=== PATIENT | male | born 1995 | race African-American/Black ===

== ENCOUNTER 2016-12-02 16:22 | Emergency (ER) | payer OTHER ==
[2016-12-02 16:37] VITALS: BP 127/65; PULSE 72; TEMP 98; BMI 32.3
[2016-12-02] MEDS ORDERED: IBUPROFEN 600 MG TABLET (FP) PO ONE ×2 (16:37→17:09)
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
== END 2016-12-02 17:49 | disposition home or self-care (01) ==
LOC: JERFT 16:22
DX: T14.8 Other injury of unspecified body region (principal); V43.52XA Car driver injured in collision with other type car in traffic accident, initial encounter; Y93.89 Activity, other specified; Y92.410 Unspecified street and highway as the place of occurrence of the external cause
CPT/HCPCS: 99281-25

== ENCOUNTER 2017-01-29 14:14 | Emergency (ER) | payer OTHER ==
[2017-01-29 14:22] VITALS: BP 117/61; PULSE 62; TEMP 97.5; BMI 32.3
[2017-01-29] MEDS ORDERED: IBUPROFEN 600 MG TABLET (FP) PO ONE ×2 (14:54→14:56)
--- NOTE | 2017-01-29 15:09 | PDOC ---
History of Present Illness - General Chief Complaint: Pain Stated Complaint: LEFT LEG PAIN Time Seen by Provider: 01/29/17 14:41 - History of Present Illness Initial Comments: 01/29/17 14:57 21 year old male with left knee pain denies injury at this time . reports hyperextension injury in the past. patient reports pain to left knee. pain relief with bracing. no swelling, no numbness or tingling to extremity Past History - Past Medical History Allergies/Adverse Reactions: Allergies Allergy/AdvReac Type Severity Reaction Status Date / Time No Known Allergies Allergy Verified 01/29/17 14:19 Home Medications: Ambulatory Orders NK [No Known Home Medication] 02/24/17 Cardiac Disorders: Yes (murmer) - Immunization History Immunization Up to Date: Yes - Psycho/Social/Smoking Cessation Hx Anxiety: No Suicidal Ideation: No Smoking Status: No Smoking History: Never smoked Have you smoked in the past 12 months: No Number of Cigarettes Smoked Daily: 0 Information on smoking cessation initiated: No Hx Alcohol Use: No Drug/Substance Use Hx: No Substance Use Type: None Review of Systems - Review of Systems Able to Perform ROS?: Yes Is the patient limited Bulgarian proficient: No Musculoskeletal: Yes: Other (left leg / knee pain) *Physical Exam - Vital Signs Last Vital Signs Temp Pulse Resp BP Pulse Ox 97.5 F L 62 18 117/61 100 01/29/17 14:20 01/29/17 14:20 01/29/17 14:20 01/29/17 14:20 01/29/17 14:20 - Physical Exam General Appearance: Yes: Appropriately Dressed Extremity: positive: Other (left knee minimal rom) Integumentary: positive: Normal Color, Dry, Warm Neurologic: positive: Fully Oriented, Alert Progress Note - Progress Note Progress Note: A: left knee pain P: splinting pain control RICE ortho follow up *DC/Admit/Observation/Transfer Diagnosis at time of Disposition: Left knee pain Qualifiers: Chronicity: acute Qualified Code(s): M25.562 - Pain in left knee - Discharge Dispostion Disposition: HOME Condition at time of disposition: Improved - Referrals Referrals: Viridiana Wolfe [Primary Care Provider] - David Myers MD [Staff Physician] - - Patient Instructions Printed Discharge Instructions: Knee Sprain Additional Instructions: ice/ heat to the knee continue using knee brace take ibuprofen 600mg every 6 hours
== END 2017-01-29 15:22 | disposition home or self-care (01) ==
LOC: JERFT 14:14
PROC: 2W3RX1Z Immobilization of Left Lower Leg using Splint (ICD-10-PCS; principal; 2017-01-29)
DX: M25.562 Pain in left knee (principal); R01.1 Cardiac murmur, unspecified
CPT/HCPCS: 29515; 99281-25

== ENCOUNTER 2017-02-24 19:03 | Emergency (ER) | payer OTHER ==
[2017-02-24 19:06] VITALS: BP 132/68; PULSE 87; TEMP 98.7; BMI 32.3
[2017-02-24] MEDS ORDERED: IBUPROFEN 600 MG TABLET (FP) PO ONE ×2 (20:20→20:42)
--- NOTE | 2017-02-24 20:25 | PDOC ---
History of Present Illness - General Chief Complaint: Injury Stated Complaint: INJURY Time Seen by Provider: 02/24/17 20:17 History Source: Patient Exam Limitations: No Limitations - History of Present Illness Initial Comments: 02/24/17 20:20 21 yr male with injury to right thumb playing basketball. Pt has no deformity or swelling. pt is right hand dominant. Occurred: reports: this afternoon Severity: reports: mild Pain Location: reports: upper extremity (right thumb ) Past History - Past Medical History Allergies/Adverse Reactions: Allergies Allergy/AdvReac Type Severity Reaction Status Date / Time No Known Allergies Allergy Verified 02/24/17 19:06 Home Medications: Ambulatory Orders NK [No Known Home Medication] 02/24/17 Cardiac Disorders: Yes (murmer) - Immunization History Immunization Up to Date: Yes - Psycho/Social/Smoking Cessation Hx Anxiety: No Suicidal Ideation: No Smoking Status: No Smoking History: Never smoked Have you smoked in the past 12 months: No Number of Cigarettes Smoked Daily: 0 Hx Alcohol Use: No Drug/Substance Use Hx: No Substance Use Type: None Trauma Specific PMHX - Complaint Specific PMHX Arthritis: No Back Injury: No Neck Injury: No Hx Sacro Iliac Joint Dysfunction: No Review of Systems - Review of Systems Able to Perform ROS?: Yes Is the patient limited Croatian proficient: No Constitutional: No: Symptoms Reported HEENTM: No: Symptoms Reported Respiratory: No: Symptoms reported Cardiac (ROS): No: Symptoms Reported ABD/GI: No: Symptoms Reported : No: Symptoms Reported Musculoskeletal: Yes: See HPI *Physical Exam - Vital Signs Last Vital Signs Temp Pulse Resp BP Pulse Ox 98.7 F 87 20 132/68 98 02/24/17 19:04 02/24/17 19:04 02/24/17 19:04 02/24/17 19:04 02/24/17 19:04 - Physical Exam General Appearance: Yes: Nourished, Appropriately Dressed HEENT: positive: EOMI, CHAIM Musculoskeletal: positive: Normal Inspection Extremity: positive: Normal Inspection, Normal Range of Motion, Tender (base of the thumb, FROM nv intact ) Integumentary: positive: Normal Color, Dry, Warm Neurologic: positive: Fully Oriented, Alert, Normal Mood/Affect, Normal Response , Motor Strength 5/5 Procedures - Splinting Splint Location: Right: Finger (thumb) Pre-Proc Neuro Vasc Exam: normal Post-Proc Neuro Vasc Exam: normal Jabier Bandage: yes ED Treatment Course - RADIOLOGY Radiology Studies Ordered: Category Date Time Status FINGER(S) RIGHT [RAD] Stat Radiology 02/24/17 19:42 Taken Medical Decision Making - Medical Decision Making 02/24/17 20:23 cc: right thumb pain after playing basketball FROM nv intact no swelling xray is negative will give motrin and thumb splint follow with the orthopedist apply ice every 2hrs for 20 minutes for the next 2 days 02/24/17 20:23 02/27/17 12:55 02/27/17 17:47 *DC/Admit/Observation/Transfer Diagnosis at time of Disposition: Thumb injury Qualifiers: Encounter type: initial encounter Laterality: right Qualified Code(s): S69.91XA - Unspecified injury of right wrist, hand and finger(s), initial encounter - Discharge Dispostion Disposition: HOME Condition at time of disposition: Good - Referrals Referrals: Viridiana Wolfe [Primary Care Provider] - Andrew Floyd MD [Staff Physician] - - Patient Instructions Additional Instructions: follow with the orthopedist for follow up next week if pain persists or worsens apply ice every 2hrs for 20 minutes for the next 2 days take motrin every 6hrs for pain use the splint while awake remove to sleep and bathe use splint until you are cleared by your doctor or the orthopedist
== END 2017-02-24 20:52 | disposition home or self-care (01) ==
LOC: JERFT 19:03
PROC: 2W3JX1Z Immobilization of Right Finger using Splint (ICD-10-PCS; principal; 2017-02-24)
DX: S69.91XA Unspecified injury of right wrist, hand and finger(s), initial encounter (principal); X58.XXXA Exposure to other specified factors, initial encounter; Y93.67 Activity, basketball; Y92.310 Basketball court as the place of occurrence of the external cause
CPT/HCPCS: 29130; 73140-TC-RT; 99281-25

== ENCOUNTER 2021-01-24 19:27 | Emergency (ER) | payer OTHER ==
[2021-01-24 19:37] VITALS: BP 121/73; PULSE 74; TEMP 97; BMI 30.4
[2021-01-24] MEDS ORDERED: IBUPROFEN 600 MG TABLET (FP) PO ONE ×2 (20:54→21:00)
== END 2021-01-24 21:47 | disposition home or self-care (01) ==
LOC: JER 19:27 → JERFT 19:27
DX: M25.551 Pain in right hip (principal); R07.89 Other chest pain; S90.31XA Contusion of right foot, initial encounter; S90.121A Contusion of right lesser toe(s) without damage to nail, initial encounter; S80.11XA Contusion of right lower leg, initial encounter
CPT/HCPCS: 71046-TC-FY; 73523-TC-FY; 73590-TC-RT-FY; 73610-TC-RT-FY; 73630-TC-RT-FY; 99284-25

== ENCOUNTER 2022-12-12 18:01 | Emergency (ER) | payer OTHER ==
[2022-12-12 18:13] VITALS: BP 116/79; PULSE 85; RESP 18; TEMP 98.8; BMI 36.3
[2022-12-12] MEDS ORDERED: IBUPROFEN 600 MG TABLET (FP) PO ONE (19:50)
[2022-12-12] MEDS ORDERED: KETOROLAC TROMETHAMINE 30 MG/1 ML VIAL IM ONE (19:51)
[2022-12-12] MEDS ORDERED: KETOROLAC TROMETHAMINE 30 MG/1 ML VIAL ONE (19:53)
== END 2022-12-12 20:04 | disposition home or self-care (01) ==
LOC: JER 18:01 → JERFT 18:01
PROC: 2W3QX1Z Immobilization of Right Lower Leg using Splint (ICD-10-PCS; principal; 2022-12-12)
PROC: 3E0233Z Introduction of Anti-inflammatory into Muscle, Percutaneous Approach (ICD-10-PCS; 2022-12-12)
DX: S86.001A Unspecified injury of right Achilles tendon, initial encounter (principal); Y93.67 Activity, basketball
CPT/HCPCS: 73610-TC-RT-FY; 73630-TC-RT-FY; 99284-25